=== PATIENT | female | born 1985 | race American Indian/Alaskan Native ===

== ENCOUNTER 2020-08-02 21:40 | Emergency (ER) | payer OTHER ==
[2020-08-02 22:31] VITALS: BP 104/69
[2020-08-02] MEDS ORDERED: traMADol 50 MG TAB PO ONE (22:42)
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
== END 2020-08-02 23:40 | disposition home or self-care (01) ==
LOC: ED 21:40
DX: S16.1XXA Strain of muscle, fascia and tendon at neck level, initial encounter (principal); S39.012A Strain of muscle, fascia and tendon of lower back, initial encounter; Z98.51 Tubal ligation status; Z79.899 Other long term (current) drug therapy; V49.49XA Driver injured in collision with other motor vehicles in traffic accident, initial encounter; Y93.89 Activity, other specified; Y92.488 Other paved roadways as the place of occurrence of the external cause; Y99.8 Other external cause status
CPT/HCPCS: 99282